=== PATIENT | female | born 1955 | race Caucasian/White ===

== ENCOUNTER 2018-04-18 19:16 | Emergency (ER) | payer SELFPAY ==
[2018-04-18] MEDS ORDERED: KETOROLAC TROMETHAMINE 30 MG/1ML VIAL IVP ONE (20:06)
[2018-04-18] MEDS ORDERED: 0.9 % SODIUM CHLORIDE 1,000 ML IV ONE (20:06)
[2018-04-18 20:12] LABS: APPEARANCE,URINE CLEAR (CLEAR); COLOR,URINE YELLOW (YELLOW); OCCULT BLOOD,URINE NEGATIVE (NEGATIVE); PH URINE 5.5 (5.0 - 8.0); UROBILINOGEN URINE 0.2 Eu (0.2-1.0)
[2018-04-18 20:45] LABS: EOSINOPHILS % 0.8 % (0.0-6.8); MEAN CORPUSCULAR HEMOGLOBIN 28.8 pg (28.0-34.0); MONOCYTES % 2.2 % (0.0-11.0)
[2018-04-18 20:46] LABS: BASOPHILS % 0.3 (0.0-1.5); NEUTROPHILS # 7.7 # k/uL (1.4-7.7)
[2018-04-18 20:48] LABS: eGFR (Non-African) > 60
[2018-04-18] MEDS ORDERED: ORPHENADRINE CITRATE 60 MG/2 ML ML IV ONE (20:55)
--- NOTE | 2018-04-18 21:09 | ED Physician Documentation ---
General Adult - HISTORIAN Historian: patient - HPI Stated Complaint: Rt flank pain Chief Complaint: General Adult Further Comments: yes (62 year old female patient presents with right flank pain; radiating to RLQ. Patient reports pain started at 1100. C/O nausea, 2 episodes of diarrhea, patient restless and cannot sit still. Denies any fever, fall or heavy lifting.) - ROS CONST: no problems EYES/ENT: none CVS/RESP: none GI/: none MS/SKIN/LYMPH: none NEURO/PSYCH: denies: headache - PAST HX Past History: hypertension Other History: diabetes Type 2 Allergies/Adverse Reactions: Allergies Allergy/AdvReac Type Severity Reaction Status Date / Time No Known Drug Allergies Allergy Verified 04/18/18 19:42 Home Medications: Ambulatory Orders Medication Instructions Recorded Baclofen [Liorasal] 10 mg PO TID PRN #30 tablet 04/18/18 Ketorolac Tromethamine [Toradol] 10 mg PO TID #15 tablet 04/18/18 - SOCIAL HX Smoking History: non-smoker - FAMILY HX Family History: No - VITAL SIGNS Vital Signs: Vital Signs Temp Pulse Resp BP Pulse Ox 97.5 F L 74 16 166/69 100 04/18/18 19:16 04/18/18 19:16 04/18/18 19:16 04/18/18 19:16 04/18/18 19:16 - REVIEWED ASSESSMENTS Nursing Assessment Reviewed: Yes Vitals Reviewed: Yes Progress - Progress Progress: Patient states she feels better after toradol. CT results reviewed with patient, questions answered. ED Results Lab/Radiology - Lab Results Lab Results: Lab Results 04/18/18 04/18/18 04/18/18 20:15 20:15 19:47 WBC 9.30 K/ul K/ul (4.00-12.00) RBC 4.19 M/ul M/ul (3.90-5.20) Hgb 12.1 g/dL g/dL (12.0-16.0) Hct 36.7 % % (34.5-46.5) MCV 88.0 fl fl (80.0-100.0) MCH 28.8 pg pg (28.0-34.0) MCHC 33.0 g/dL g/dL (30.0-36.0) RDW 13.9 % % (11.3-14.3) Plt Count 253 K/mm3 K/mm3 (130-400) Neut % (Auto) 83.1 % H % (39.0-79.0) Lymph % (Auto) 13.6 % L % (16.0-50.0) [place] % (Auto) 2.2 % % (0.0-11.0) Eos % (Auto) 0.8 % % (0.0-6.8) Baso % (Auto) 0.3 (0.0-1.5) Neut # (Auto) 7.7 # k/uL # k/uL (1.4-7.7) Lymph # (Auto) 1.3 # k/uL # k/uL (0.6-4.0) [place] # (Auto) 0.2 # k/uL # k/uL (0.0-0.9) Eos # (Auto) 0.1 # k/uL # k/uL (0.0-0.6) Baso # (Auto) 0.0 # k/uL # k/uL (0.0-0.5) Sodium 132 mmol/L L mmol/L (136-145) Potassium 4.8 mmol/L mmol/L (3.5-5.1) Chloride 97 mmol/L L mmol/L (98-107) Carbon Dioxide 26 mmol/L mmol/L (22-30) BUN 28 mg/dL H mg/dL (7-17) Creatinine 1.10 mg/dL H mg/dL (0.52-1.04) Estimated Creat Clear 73 Est GFR ( Amer) > 60 (60 - ) Est GFR (Non-Af Amer) > 60 (60 - ) Glucose 178 mg/dL H mg/dL (74-106) Calcium 9.9 mg/dL mg/dL (8.4-10.2) Total Bilirubin 0.4 mg/dL mg/dL (0.2-1.3) AST 24 U/L U/L (15-46) ALT 28 U/L U/L (13-69) Alkaline Phosphatase 85 U/L U/L (38-126) Total Protein 7.7 g/dL g/dL (6.3-8.2) Albumin 5.0 g/dL g/dL (3.5-5.0) Urine Color Yellow (YELLOW) Urine Appearance Clear (CLEAR) Urine pH 5.5 (5.0 - 8.0) Ur Specific Farrell >=1.030 H (1.010-1.030) Urine Protein Negative mg/dL mg/dL (NEGATIVE) Urine Ketones 1+ mg/dL H mg/dL (NEGATIVE) Urine Occult Blood Negative (NEGATIVE) Urine Nitrite Negative (NEGATIVE) Urine Bilirubin Negative (NEGATIVE) Urine Urobilinogen 0.2 Eu Eu (0.2-1.0) Ur Leukocyte Esterase Negative (NEGATIVE) Urine Glucose Negative mg/dL mg/dL (NEGATIVE) - Radiology Radiology Impressions: CT abdomen and pelvis without contrast Date of study: April 18, 2018. CLINICAL HISTORY: RT FLANK PAIN STARTED THIS MORNING, NO HX OF KIDNEY STONES (Hx) / ITS.REASON right flank pain TECHNIQUE: 5 mm contiguous axial images of the abdomen and pelvis non contrast. FINDINGS: No comparison studies are provided. There is left lingular atelectasis and bibasilar dependent lung densities. A small hiatal hernia is noted. Abdomen: The liver diffusely fatty in density. The pancreas and spleen are normal in appearance. The gallbladder is unremarkable. Bilateral perinephric scarring is present. There is a 2 mm left renal lower pole parenchymal calculus without hydronephrosis. The aorta is normal in caliber with scattered atherosclerotic calcifications evident. The small bowel is nondistended. There is no evidence of free air or free fluid. Pelvis: The colon is normal in appearance. The distal ureters and bladder are normal in appearance. There is no evidence of distal ureteral or intravesicular calculi. The appendix is normal. There is no evidence of free air or free fluid. The sigmoid colon and rectum are normal. The remaining pelvic structures are within normal limits and the bones of the pelvis are intact. Multilevel degenerative lumbar spondylosis is present. IMPRESSION: 2 mm left renal lower pole parenchymal calculus. Electronically signed on Apr 18, 2018 8:44:30 PM [employer] by: Lynette Corey - Orders Orders: ED Orders Category Date Time Status CT ABD & PELVIS W/O CON Stat Exams 04/18/18 Taken CBC/PLATELET/DIFF Stat Lab 04/18/18 20:15 Completed CMP Stat Lab 04/18/18 20:15 Completed UA MACRO DIP ONLY Routine Lab 04/18/18 19:47 Completed 0.9 % Sodium Chloride [Normal Saline] 1,000 ml Med 04/18/18 20:06 Discontinued IV NOW Ketorolac Tromethamine [Toradol] Med 04/18/18 20:06 Discontinued 30 mg IVP NOW ONE Orphenadrine Citrate [Norflex] Med 04/18/18 20:55 Discontinued 60 mg IV NOW ONE General Adult Physical Exam - PHYSICAL EXAM GENERAL APPEARANCE: moderate distress EENT: eye inspection normal, ENT inspection normal, pharynx normal, no signs of dehydration, [place], no nystagmus, TM's nml RESPIRATORY: no resp distress, chest non-tender, breath sounds normal CVS: reg rate & rhythm, heart sounds normal, equal pulses, no murmur, no gallop, PMI nml, no JVD, no friction rub, 24 ABDOMEN: soft, no organomegaly, normal bowel sounds, no abdominal bruit, no distension BACK: CVA tenderness (R) SKIN: normal color, warm/dry, NR, INT, PAL, DR EXTREMITIES: non-tender, normal range of motion, no evidence of injury, no 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 Follow up this week with your primary care provider if your symptoms do not improve. Condition: Stable Disposition: 01 HOME, SELF-CARE Decision to Admit: NO Decision Time: 21:09
[2018-04-18 21:58] VITALS: BP 156/65
--- NOTE | 2018-04-19 07:31 | Diagnostic Imaging Report ---
QUINTIN LUNDBERG (MID LEVEL PROVIDER) - ER [facility] [id number] [facility] [address] [place], [place]. [address] Report Submission Date: Apr 18, 2018 8:44:30 PM MANAGER MUSIC Patient Study Name: TENA ORNELAS Date: Apr 18, 2018 8:18:21 PM MANAGER MUSIC Modality Type: CT\SR Gender: F Description: CT ABD PELVIS W/O CO : 51 Institution: [facility] Physician: QUINTIN LUNDBERG (RIKY) - ER CT abdomen and pelvis without contrast Date of study: April 18, 2018. CLINICAL HISTORY: RT FLANK PAIN STARTED THIS MORNING, NO HX OF KIDNEY STONES (Hx) / ITS.REASON right flank pain TECHNIQUE: 5 mm contiguous axial images of the abdomen and pelvis non contrast. FINDINGS: No comparison studies are provided. There is left lingular atelectasis and bibasilar dependent lung densities. A small hiatal hernia is noted. Abdomen: The liver diffusely fatty in density. The pancreas and spleen are normal in appearance. The gallbladder is unremarkable. Bilateral perinephric scarring is present. There is a 2 mm left renal lower pole parenchymal calculus without hydronephrosis. The aorta is normal in caliber with scattered atherosclerotic calcifications evident. The small bowel is nondistended. There is no evidence of free air or free fluid. Pelvis: The colon is normal in appearance. The distal ureters and bladder are normal in appearance. There is no evidence of distal ureteral or intravesicular calculi. The appendix is normal. There is no evidence of free air or free fluid. The sigmoid colon and rectum are normal. The remaining pelvic structures are within normal limits and the bones of the pelvis are intact. Multilevel degenerative lumbar spondylosis is present. IMPRESSION: 2 mm left renal lower pole parenchymal calculus. Electronically signed on Apr 18, 2018 8:44:30 PM MANAGER MUSIC by: Lynette ELIZABETH
== END 2018-04-18 21:25 | disposition home or self-care (01) ==
LOC: ED 19:16
DX: R10.31 Right lower quadrant pain (principal); N20.0 Calculus of kidney
CPT/HCPCS: 36415; 74176; 80053; 81002; 85025; 96365; 96375; 99282; 99284; J1885; J2360; J7030; S1016

== ENCOUNTER 2019-02-06 10:23 | Outpatient (CLI) | payer MEDICARE, OTHER ==
[2019-02-06 10:47] LABS: A1C 6.1 % (<5.7)
[2019-02-06 11:11] LABS: eGFR (Non-African) > 60
[2019-02-06 11:16] LABS: HDL 74 mg/dL (>40)
== END 2019-02-06 10:33 ==
LOC: RT 10:23
PROVIDERS: ATTEND Family Medicine
DX: Z00.00 Encounter for general adult medical examination without abnormal findings (principal); Z13.6 Encounter for screening for cardiovascular disorders; E11.9 Type 2 diabetes mellitus without complications
CPT/HCPCS: 36415; 80053; 80061; 83036; 93005